=== PATIENT | female | born 1990 | race Caucasian/White ===

== ENCOUNTER → 2017-12-05 | Outpatient (CLI) | payer OTHER ==
[2017-12-05 17:36] LABS: BASO % 0.2 %; BASO ABS # 0.02 K/uL (0-0.2); EOS % 0.7 %; EOS ABS # 0.09 K/uL (0-0.5); HEMATOCRIT 36.5 % (37-47); IG# 0.04 K/uL (0.00-0.02); LYMPH % 27.3 %; LYMPH ABS # 3.37 K/uL (1.2-3.4); MEAN CELL VOLUME 94.6 fL (80-100); MEAN CORPUSCULAR HEMOGLOBIN 33.7 pg (25-34); MEAN CORPUSCULAR HGB CONC 35.6 g/dl (32-36); MEAN PLATELET VOLUME 9.8 fL (7.4-10.4); MONO % 11.2 %; MONO ABS # 1.38 K/uL (0.11-0.59); NEUT % 60.3 %; NEUT ABS # 7.46 K/uL (1.4-6.5); PLATELET COUNT 239 K/uL (130-400); RED CELL DISTRIBUTION WIDTH CV 12.5 % (11.5-14.5); RED CELL DISTRIBUTION WIDTH SD 42.4 fL (36.4-46.3); WHITE BLOOD COUNT 12.36 K/uL (4.8-10.8)
== END | disposition home or self-care (01) ==
LOC: C.LAB1850 16:53
PROVIDERS: ATTEND Obstetrics & Gynecology
DX: Z34.01 Encounter for supervision of normal first pregnancy, first trimester (principal); Z3A.00 Weeks of gestation of pregnancy not specified

== ENCOUNTER → 2017-12-05 | Outpatient (CLI) | payer OTHER | END | disposition home or self-care (01) | LOC: C.LABSPEC 09:23 | PROVIDERS: ATTEND Obstetrics & Gynecology | DX: O02.1 Missed abortion (principal); Z3A.00 Weeks of gestation of pregnancy not specified ==

== ENCOUNTER → 2017-12-22 | Day surgery (SDC) | payer OTHER ==
[2017-12-20 15:19] VITALS: BMI 22.0
[~2017-12-22] VITALS: Ht 154.9 cm; Wt 53.0 kg
[~2017-12-22] MED LIST: ASCA500 PO; ATROPINE SULFATE 0.1 MG/ML 5ML SYR IV PRN; DEXAMETHASONE SOD INJ 4 MG/ML VIAL ONE; DOXYCYCLINE HYCLATE 100 MG CAP PO SCH; EpHEDrine SULFATE INJ 50 MG/ML AMP IV PRN; FENTANYL CITRATE INJ 50 MCG/1 ML 2 ML VIAL IV PRN; FENTANYL CITRATE INJ 50 MCG/1 ML 2 ML VIAL ONE; FERR1TAB13 PO; FLUMAZENIL 0.1 MG/1 ML 10 ML VIAL IV PRN; HYDROmorphone INJ 1 MG/ML SYR ONE; IBUPROFEN 200 MG TAB PO PRN; IBUPROFEN 600 MG TAB PO PRN; KETOROLAC TROMETHAMINE 30 MG/ML VIAL IV. PRN; KETOROLAC TROMETHAMINE 30 MG/ML VIAL ONE; LACTATED RINGER'S 1000ML 1,000 ML IV SCH; LIDOCAINE HCL 2% 2 ML VIAL (20MG/ML) ONE; METHYLERGONOVINE MALEATE 0.2 MG/ML AMP ONE; MIDAZOLAM HCL 1 MG/ML 2ML VIAL ONE; MoRPHine SULFATE 2 MG/ML CARP IV PRN; MoRPHine SULFATE 4 MG/ML 1 ML CARP\\VIAL IV PRN; NALOXONE HCL 0.4 MG/1 ML VIAL/CARP IV PRN; ONDANSETRON INJ 2 MG/ML 2 ML VIAL IV PRN; ONDANSETRON INJ 2 MG/ML 2 ML VIAL ONE; OXYCODONE HCL IR 5 MG TAB (IMMEDIATE RELEASE) ONE; OXYCODONE HCL IR 5 MG TAB (IMMEDIATE RELEASE) PO PRN; PHENYLEPHRINE 100MCG/ML 5ML SYR ONE; PRENTAB26 PO; PROMETHAZINE HCL INJ 12.5 MG in SODIUM CHLORIDE 0.9% 50ML 50 ML IV PRN; PROPOFOL IV EMULSION 10 MG/ML 20 ML VIAL IV ONE
[2017-12-22 07:12] VITALS: BP 111/60; PULSE 60; TEMP 37; O2SAT 99; Ht 154.9 cm; Wt 53.0 kg
[2017-12-22 07:36] LABS: BASO % 0.4 %; BASO ABS # 0.03 K/uL (0-0.2); EOS % 1.5 %; EOS ABS # 0.11 K/uL (0-0.5); HEMATOCRIT 35.4 % (37-47); HEMOGLOBIN 12.8 g/dL (12.0-16.0); IG# 0.02 K/uL (0.00-0.02); LYMPH % 22.8 %; LYMPH ABS # 1.63 K/uL (1.2-3.4); MEAN CELL VOLUME 95.4 fL (80-100); MEAN CORPUSCULAR HEMOGLOBIN 34.5 pg (25-34); MEAN PLATELET VOLUME 9.1 fL (7.4-10.4); MONO % 9.4 %; MONO ABS # 0.67 K/uL (0.11-0.59); NEUT % 65.6 %; PLATELET COUNT 172 K/uL (130-400); RED CELL DISTRIBUTION WIDTH CV 12.8 % (11.5-14.5); RED CELL DISTRIBUTION WIDTH SD 43.6 fL (36.4-46.3); WHITE BLOOD COUNT 7.16 K/uL (4.8-10.8)
[2017-12-22 07:38] LABS: MEAN CORPUSCULAR HGB CONC 36.2 g/dl (32-36)
--- NOTE | 2017-12-22 07:59 | History & Physical Bridge Note ---
H&P Re-Evaluation Bridge Note: I have examined the patient, reviewed the History & Physical and in the interval since the performance of the History & Physical I have noted the following changes of clinical significance: No changes noted
--- NOTE | 2017-12-22 08:38 | [facility] Post Operative Brief Note ---
Immediate Operative Summary Operative Date Dec 22, 2017. Pre-Operative Diagnosis incomplete ab, failed cytotec Post-Operative Diagnosis same Procedure(s) Performed D&E Surgeon Candy Security Officer Surgeon(s) none Estimated Blood Loss 200cc Findings See Below uterus sounded to 8cm, pocs removed Fluids (cc crystalloids) 750cc Specimens pocs Drains None Anesthesia Type General Complication(s) none Disposition Accompanied Pt To Recover: yes Disposition: Recovery Room / PACU
--- NOTE | 2017-12-22 08:59 | Discharge Instructions ---
Discharge Instructions Date of Service Dec 22, 2017. Visit Reason for Visit: Missed /Incomplete Discharge Discharge Diagnosis / Problem: S/P D&E Discharge Goals Goal(s): Specific goals Activity Recommendations Activity Limitations: per Instructions/Follow-up section Anesthesia . Post Anesthesia Instructions: If you have had General Anesthesia or IV Sedation: * Do not drive today. * Resume driving when surgeon permits. * Do not make important decisions or sign legal documents today. * Call surgeon for: 1. Temperature elevations greater than 101 degrees F. 2. Uncontrollable pain. 3. Excessive bleeding. 4. Persistent nausea and vomiting. 5. Medication intolerance (nausea, vomiting or rash). * For nausea and vomiting use only clear liquids such as: tea, soda, bouillon until nausea subsides, then gradually increase diet as tolerated. * If you have any concerns or questions, call your surgeon's office. If physician is unavailable and it is an emergency, call 911 or go to the nearest emergency room. . Instructions / Follow-Up Instructions / Follow-Up ACTIVITY RECOMMENDATIONS: * Avoid tampons, douching, hot tubs, pools, and intercourse until bleeding has stopped. * May shower as usual. * No strenuous activity for 24-48 hours. After 24-48 hours, you may do anything you feel like doing (driving and sports are okay). SPECIAL CARE INSTRUCTIONS: Special Diet: * Mild nausea may occur in the immediate post-operative period. * Take clear liquids such as tea, cola or bouillon until all nausea has subsided; you may then resume your normal diet. Special Care: * Light bleeding and vaginal spotting can last from a few days to 3-4 weeks. Call your doctor if bleeding becomes heavier than the heaviest part of your period. * Check your temperature twice a day for one week. If it goes above 100.4 degrees Fahrenheit (38.0 Celsius), notify your doctor. * Call your doctor's office for an appointment for 2-4 weeks after your surgery. FOLLOW-UP VISIT: Call your doctor's office for an appointment for 2-4 weeks after your surgery. Diet Recommendations Recommended Home Diet: no limitations, resume previous diet Procedures Procedures Performed: D&E Pending Studies Studies pending at discharge: no Medical Emergencies . Who to Call and When: Medical Emergencies: If at any time you feel your situation is an emergency, please call 911 immediately. . Non-Emergent Contact Non-Emergency issues call your: Fine Craft Artist . . "Provider Documentation" section prepared by Carisa Gupta. .
--- NOTE | 2017-12-22 09:16 | OPERATIVE REPORT ---
DATE OF OPERATION: 12/22/2017 PREOPERATIVE DIAGNOSES: 1. Incomplete/missed . 2. Failed Cytotec. POSTOPERATIVE DIAGNOSES: Same. PROCEDURE: D&E. SURGEON: Carisa Gupta MD. ANESTHESIA: General per laryngeal mask. ESTIMATED BLOOD LOSS: 200 Ml. FLUIDS: 750 mL of IV fluid. URINE OUTPUT: 300 mL of clear yellow urine drained from the bladder at the beginning of the procedure. INDICATIONS: Carolina is a 27-year-old 1, para 0 who was found to have a missed AB in the office at her new OB visit, she was 8+ weeks by dates and only 6 weeks by size without a heart rate. She attempted vaginal Cytotec for medical treatment of missed AB and has failed and has now decided to proceed with D&E. FINDINGS: Uterus sounded to 8 cm. It was approximately 8 weeks in size and mobile. Products of conception removed from the uterus. COMPLICATIONS: None. DRAINS: None. DISPOSITION: To recovery room in stable condition. DESCRIPTION OF THE PROCEDURE: The patient was taken to the operating room where she was identified verbally and by bracelet. She was placed in dorsal supine position where general anesthesia was induced without difficulty. She was then placed in dorsal lithotomy position in hospital [facility] stirrups and prepped and draped in normal sterile fashion. Timeout was held identifying correct patient, procedure and positioning. The bladder was drained of urine. The exam under anesthesia revealed an 8 week, mobile, anteverted uterus. A weighted speculum was placed in the posterior vagina. The anterior lip of the cervix was grasped with a single tooth tenaculum. Uterus was sounded to 8 cm, was dilated to a #29 Hegar dilator. The suction curette was placed into the uterus x3 with removal of products of conception. Curettage was then done in 365 degrees until a cat's cry was heard in all quadrants. The suction curette was passed x2 without return of further tissue. The tenaculum was removed. The uterus was massaged and bleeding was minimal. She was given 0.2 mg of IM Hemabate and the procedure was terminated. All sponge, lap and needle counts were correct x2. The patient tolerated the procedure well and was taken to recovery room in stable condition. I attest to the content of the Intraoperative Record and any orders documented therein. Any exception s are noted below.
--- NOTE | 2017-12-22 09:19 | Anesthesiology Progress Note ---
Anesthesia Post Op Note Date & Time Dec 22, 2017 at 09:19 Vital Signs Pain Intensity: 1 Vital Signs Past 12 Hours Date Time Temp Pulse Resp B/P (MAP) Pulse Ox O2 Delivery O2 Flow Rate FiO2 12/22/17 09:15 36.5 103/62 12/22/17 09:13 79 14 12/22/17 09:13 79 14 94 12/22/17 09:11 106/66 12/22/17 09:08 86 18 12/22/17 09:08 87 18 95 12/22/17 09:05 109/69 12/22/17 09:03 66 19 12/22/17 09:03 66 19 98 12/22/17 09:00 106/65 12/22/17 08:58 59 19 12/22/17 08:58 60 19 98 12/22/17 08:55 107/64 12/22/17 08:53 67 17 12/22/17 08:53 68 17 98 12/22/17 08:50 101/60 12/22/17 08:48 58 19 12/22/17 08:48 58 19 97 12/22/17 08:46 108/59 12/22/17 08:38 36.7 68 16 103/60 97 Oxymask 7 12/22/17 07:12 37 60 16 111/60 (77) 99 Room Air Notes Mental Status: alert / awake / arousable, participated in evaluation Pt Amnestic to Procedure: Yes Nausea / Vomiting: adequately controlled Pain: adequately controlled Airway Patency, RR, SpO2: stable & adequate BP & HR: stable & adequate Hydration State: stable & adequate Anesthetic Complications: no major complications apparent
[2017-12-22 09:25] VITALS: BP 107/55; PULSE 63; TEMP 36.6; O2SAT 98
[2017-12-22 09:53] VITALS: BP 104/50; PULSE 67; O2SAT 99
[2017-12-22 10:22] VITALS: BP 100/59; PULSE 65; O2SAT 99
[2017-12-22 10:50] VITALS: BP 113/58; PULSE 61; TEMP 36.7; O2SAT 100
== END | disposition home or self-care (01) ==
LOC: C.ACU 06:50
PROVIDERS: ATTEND Obstetrics & Gynecology
DX: O02.1 Missed abortion (principal); Z80.3 Family history of malignant neoplasm of breast; Z82.0 Family history of epilepsy and other diseases of the nervous system; Z87.891 Personal history of nicotine dependence

== ENCOUNTER → 2018-07-03 | Outpatient (CLI) | payer OTHER ==
[~2018-07-03] MED LIST changes: -ASCA500 PO; -ATROPINE SULFATE 0.1 MG/ML 5ML SYR IV PRN; -DEXAMETHASONE SOD INJ 4 MG/ML VIAL ONE; -DOXYCYCLINE HYCLATE 100 MG CAP PO SCH; -EpHEDrine SULFATE INJ 50 MG/ML AMP IV PRN; -FENTANYL CITRATE INJ 50 MCG/1 ML 2 ML VIAL IV PRN; -FENTANYL CITRATE INJ 50 MCG/1 ML 2 ML VIAL ONE; -FERR1TAB13 PO; -FLUMAZENIL 0.1 MG/1 ML 10 ML VIAL IV PRN; -HYDROmorphone INJ 1 MG/ML SYR ONE; -IBUPROFEN 200 MG TAB PO PRN; -IBUPROFEN 600 MG TAB PO PRN; -KETOROLAC TROMETHAMINE 30 MG/ML VIAL IV. PRN; -KETOROLAC TROMETHAMINE 30 MG/ML VIAL ONE; -LACTATED RINGER'S 1000ML 1,000 ML IV SCH; -LIDOCAINE HCL 2% 2 ML VIAL (20MG/ML) ONE; -METHYLERGONOVINE MALEATE 0.2 MG/ML AMP ONE; -MIDAZOLAM HCL 1 MG/ML 2ML VIAL ONE; -MoRPHine SULFATE 2 MG/ML CARP IV PRN; -MoRPHine SULFATE 4 MG/ML 1 ML CARP\\VIAL IV PRN; -NALOXONE HCL 0.4 MG/1 ML VIAL/CARP IV PRN; -ONDANSETRON INJ 2 MG/ML 2 ML VIAL IV PRN; -ONDANSETRON INJ 2 MG/ML 2 ML VIAL ONE; -OXYCODONE HCL IR 5 MG TAB (IMMEDIATE RELEASE) ONE; -OXYCODONE HCL IR 5 MG TAB (IMMEDIATE RELEASE) PO PRN; -PHENYLEPHRINE 100MCG/ML 5ML SYR ONE; -PROMETHAZINE HCL INJ 12.5 MG in SODIUM CHLORIDE 0.9% 50ML 50 ML IV PRN; -PROPOFOL IV EMULSION 10 MG/ML 20 ML VIAL IV ONE
== END | disposition home or self-care (01) ==
LOC: C.LAB1850 06-29 17:16
PROVIDERS: ATTEND Obstetrics & Gynecology
DX: N96 Recurrent pregnancy loss (principal)

== ENCOUNTER 2019-04-27 18:40 | Inpatient (IN) ==
[2019-04-27] MEDS: LACTATED RINGER'S 1,000 ML IV PRN ×2 (19:47→21:10)
[2019-04-27] MEDS ORDERED: OXYTOCIN 30 UNITS/500 ML BAG IV PRN (20:04)
--- NOTE | 2019-04-27 20:42 | Anesthesiology Consultation ---
Date of Service April 27, 2019 Assessment & Plan (1) Encounter for pre-operative examination: Chart Review Chart Review: Patient NOT seen in Pre Admission Testing and Acceptable Risk for Labor Epidural Consults Requested none ASA ASA2 Proposed Anesthesia Anesthesia Type: Labor Epidural Risk / Benefits Reviewed With: PT / POA / Parent / Guardian, Accepts Plan and Informed Consent Obtained Additional Notes Platelets low. Labs drawn immediately prior to epidural placement. No signs of symptoms concerning for pre-e or HELP. History Height/Weight Height: 5 ft 1 in Weight: 77.111 kg Allergies Allergy/AdvReac Type Severity Reaction Status Date / Time acetaminophen Allergy Mild RASH Verified 05/12/18 12:02 Medications Home Medications Medication Instructions Recorded Confirmed Last Taken PNV cmb#95-ferrous fumarate-FA 1 tab PO DAILY 04/27/19 04/27/19 1 Day Ago [] ~04/26/19 calcium carbonate [Tums] 200 mg PO BID 04/27/19 04/27/19 04/27/19 NPO Date Last Intake of Fluids: 04/27/19 Time Last Intake of Fluids: 20:59 Date Last Intake of Solids: 04/27/19 Time Last Intake of Solids: 17:30 Exercise / Class Metabolic Activity II 4-5 Yardwork/Stairs/Walk up hill Negative for chest pain or shortness of breath. Patient denies active symptoms of GERD. Past Surgical History Surgical History History of D&C History of surgery on wrist Hx of appendectomy Past Anesthesia History No Hx of Anesthesia Complications History of PONV No Hx of PONV and No Hx of Motion Sickness Social History Smoking Status: Never smoker Do You Dip or Chew Tobacco: No Hx Alcohol Use: No Hx Substance Use: No Review of Systems Patient denies history of abnormal bleeding or bleeding disorder. Patient denies active use of anticoagulants other than low dose aspirin. Patient denies numbness, tingling or weakness in lower extremities. Physical Exam Vital Signs Last Vital Signs Pulse 80 04/27/19 21:07 Resp 20 04/27/19 20:30 BP 144/81 H 04/27/19 18:56 Pulse Ox 98 04/27/19 21:07 Constitutional not obese (Gravid uterus) ENMT Mouth: no TMJ abnormality and oral opening not small Thyromental Distance: > or= 3.5 Finger Breadths Mallampati Class: II Neck normal visual inspection; neck extension not limited Respiratory normal respiratory effort Auscultation: lungs clear to auscultation bilaterally Cardiovascular Rate/Rhythm: regular rate and regular rhythm Heart Sounds: no murmur Neurologic moves all extremities Motor/Sensory: no sensory deficit Psychiatric Orientation: alert and oriented x 3 Testing Laboratory Results 04/27/19 20:19
[2019-04-27 20:44] LABS: Hematocrit (blood only) 34.5 % (37-47); Hemoglobin 12.6 g/dL (12.0-16.0); Mean Corpuscular Hgb Conc 36.5 g/dL (32-36); Mean Corpuscular Volume 99.1 fL (80-100); RDW Coefficient of Variation 12.1 % (11.5-14.5); RDW Standard Deviation 43.8 fL (36.4-46.3); Red Blood Count 3.48 M/uL (4.2-5.4); White Blood Count 13.41 K/uL (4.8-10.8)
[2019-04-27] MEDS ORDERED: BUPIVACAINE 0.25% 30 ML VIAL ONE (20:51)
[2019-04-27] MEDS ORDERED: ePHEDrine sulfate 50 MG/ML AMP ONE (20:51)
[2019-04-27] MEDS ORDERED: fentaNYL 2MCG/ML ROPIV 1.25MG/ML 100 ML BAG EPI ONE (20:52)
[2019-04-27] MEDS ORDERED: fentaNYL citrate 100 MCG/2 ML VIAL ONE (20:52)
[2019-04-27 21:05] LABS: Mean Platelet Volume 11.4 fL (7.4-10.4); Platelet Count 94 K/uL (130-400); Platelet Estimate Decreased (Normal)
[2019-04-27] MEDS ORDERED: ONDANSETRON INJ 2 MG/ML 2 ML VIAL IV PRN (21:43)
[2019-04-27] MEDS ORDERED: NALOXONE HCL 1 MG in SODIUM CHLORIDE 0.9% 1000ML 1,000 ML IV PRN (21:43)
[2019-04-27] MEDS ORDERED: NALBUPHINE HCL INJ 10 MG/ML AMP IV PRN (21:43)
[2019-04-27] MEDS ORDERED: fentaNYL 2MCG/ML ROPIV 1.25MG/ML 100 ML BAG EPI PRN (21:43)
[2019-04-27] MEDS ORDERED: DiphenhydrAMINE HCL 50 MG/ML VIAL IV PRN (21:43)
[2019-04-27] MEDS ORDERED: NALOXONE HCL 0.4 MG/1 ML VIAL/CARP IV PRN (21:43)
[2019-04-27] MEDS ORDERED: ePHEDrine sulfate 50 MG/ML AMP IV PRN (21:43)
--- NOTE | 2019-04-28 03:08 | Labor Progress Brief Note ---
Date of Service April 28, 2019 Subjective comfortable Assessment & Plan (1) Encounter for pre-operative examination: Continue current management. fetus category one. Physical Exam Constitutional: WD/WN, vitals as above Genitourinary: cx--/-2 toco--q5min efm--120s with mod variability, accels present, no decels Results & Data Vital Signs (Past 12 Hours) Vital Signs Temp Pulse Resp BP Pulse Ox 04/28/19 03:02 96 H 96 04/28/19 03:00 80 111/56 L 04/28/19 02:57 83 92 04/28/19 02:52 84 95 04/28/19 02:47 78 95 04/28/19 02:46 73 117/59 L 04/28/19 02:42 74 96 04/28/19 02:37 69 96 04/28/19 02:32 80 95 04/28/19 02:30 37.0 C 73 16 123/58 L 04/28/19 02:27 88 95 04/28/19 02:22 80 97 04/28/19 02:17 86 96 04/28/19 02:15 87 134/81 04/28/19 02:12 85 97 04/28/19 02:07 78 94 04/28/19 02:02 90 96 04/28/19 02:01 83 122/77 04/28/19 02:00 16 04/28/19 01:57 83 95 04/28/19 01:52 93 H 96 04/28/19 01:47 84 95 04/28/19 01:45 91 H 118/72 04/28/19 01:42 85 94 04/28/19 01:37 83 94 04/28/19 01:32 99 H 116/69 95 04/28/19 01:30 16 04/28/19 01:27 86 94 04/28/19 01:22 89 96 04/28/19 01:17 81 120/59 L 96 04/28/19 01:12 80 95 04/28/19 01:07 89 95 04/28/19 01:02 85 95 04/28/19 01:01 93 H 114/56 L 04/28/19 01:00 20 04/28/19 00:57 83 95 04/28/19 00:52 85 95 04/28/19 00:47 84 95 04/28/19 00:46 82 118/66 04/28/19 00:42 87 96 04/28/19 00:37 82 96 04/28/19 00:32 81 95 04/28/19 00:31 87 113/57 L 04/28/19 00:30 36.8 C 20 04/28/19 00:27 87 96 04/28/19 00:22 83 96 04/28/19 00:17 89 96 04/28/19 00:15 86 132/72 04/28/19 00:12 85 95 04/28/19 00:07 94 H 97 04/28/19 00:02 99 H 96 04/28/19 00:01 86 130/75 04/27/19 23:57 76 96 04/27/19 23:52 92 H 96 04/27/19 23:47 90 95 04/27/19 23:45 88 124/58 L 04/27/19 23:42 80 93 04/27/19 23:37 93 H 95 04/27/19 23:32 79 95 04/27/19 23:30 86 124/60 04/27/19 23:27 85 94 04/27/19 23:22 91 H 95 04/27/19 23:17 87 129/61 95 04/27/19 23:12 101 H 94 04/27/19 23:07 83 93 04/27/19 23:03 101 H 121/60 04/27/19 23:02 89 94 04/27/19 23:00 37.0 C 20 04/27/19 22:57 95 H 96 04/27/19 22:52 102 H 92 04/27/19 22:47 95 H 93 04/27/19 22:46 93 H 114/61 04/27/19 22:42 95 H 93 04/27/19 22:37 86 94 04/27/19 22:32 91 H 93 04/27/19 22:31 104 H 113/71 04/27/19 22:30 18 04/27/19 22:27 94 H 92 04/27/19 22:22 106 H 93 04/27/19 22:17 109 H 94 04/27/19 22:16 100 H 108/69 04/27/19 22:12 97 H 94 04/27/19 22:07 98 H 92 04/27/19 22:02 92 H 93 04/27/19 22:01 88 120/73 04/27/19 22:00 20 04/27/19 21:57 93 H 94 04/27/19 21:52 96 H 93 04/27/19 21:47 89 94 04/27/19 21:45 97 H 131/78 04/27/19 21:43 90 129/66 04/27/19 21:42 94 H 94 04/27/19 21:41 92 H 126/69 04/27/19 21:39 87 127/77 04/27/19 21:37 87 132/79 95 04/27/19 21:35 82 133/91 04/27/19 21:33 81 129/82 04/27/19 21:32 86 98 04/27/19 21:31 75 128/83 04/27/19 21:27 81 97 04/27/19 21:22 85 100 04/27/19 21:20 76 129/76 04/27/19 21:17 100 H 98 04/27/19 21:12 82 97 04/27/19 21:07 80 98 04/27/19 21:02 79 97 04/27/19 21:00 20 04/27/19 20:57 83 98 04/27/19 20:52 87 98 04/27/19 20:47 74 98 04/27/19 20:42 79 98 04/27/19 20:37 76 97 04/27/19 20:32 87 98 04/27/19 20:30 20 04/27/19 20:00 20 04/27/19 19:45 37.0 C 20 04/27/19 19:15 22 04/27/19 18:56 72 144/81 H
--- NOTE | 2019-04-28 03:12 | Communication Note ---
Date of Service: April 28, 2019 although making slow change, ctx still fairly spaced. Discussed and will add pit to get better contraction pattern.
[2019-04-28] MEDS ORDERED: OXYTOCIN 30 UNITS/500 ML BAG IV PRN ×2 (03:13→11:05)
[2019-04-28] MEDS: LACTATED RINGER'S 1,000 ML IV PRN (04:43)
--- NOTE | 2019-04-28 09:23 | Obstetrical Progress Note ---
Date of Service April 28, 2019 Assessment & Plan (1) Post term over 40 weeks: good cx change. anticip 2nd stage soon. fhts categ 1 Subjective pt doing well. comfortable Physical Exam Constitutional: WD/WN, vitals as above Genitourinary: OB Exam Monitor Tracing: + external FHT monitor used (150 moderate variability, +scalp stim response), + external uterine monitor used (q2 pit at 8) and + category I Results & Data Vital Signs (Past 12 Hours) Vital Signs Temp Pulse Resp BP Pulse Ox 04/28/19 09:17 94 H 97 04/28/19 09:16 92 H 129/75 04/28/19 09:12 90 96 04/28/19 09:07 95 H 96 04/28/19 09:02 83 94 04/28/19 09:01 85 134/64 04/28/19 09:00 20 04/28/19 08:57 85 94 04/28/19 08:52 83 94 04/28/19 08:47 84 125/60 94 04/28/19 08:42 85 94 04/28/19 08:37 85 94 04/28/19 08:32 81 95 04/28/19 08:30 89 18 133/64 04/28/19 08:27 87 97 04/28/19 08:22 92 H 96 04/28/19 08:17 84 95 04/28/19 08:16 37.7 C H 18 04/28/19 08:15 88 131/68 04/28/19 08:12 80 95 04/28/19 08:07 86 95 04/28/19 08:02 87 96 04/28/19 08:01 92 H 127/70 04/28/19 08:00 18 04/28/19 07:57 84 94 04/28/19 07:52 81 95 04/28/19 07:47 83 97 04/28/19 07:46 85 128/72 04/28/19 07:42 89 97 04/28/19 07:37 95 H 96 04/28/19 07:32 88 97 04/28/19 07:30 89 20 131/76 04/28/19 07:27 93 H 98 04/28/19 07:22 89 97 04/28/19 07:17 86 96 04/28/19 07:16 37.9 C H 84 20 133/73 06/08/19 07:15 37.9 C H 20 04/28/19 07:12 94 H 98 04/28/19 07:07 88 98 04/28/19 07:02 92 H 124/58 L 97 04/28/19 06:57 100 H 97 04/28/19 06:52 94 H 97 04/28/19 06:47 86 125/74 96 04/28/19 06:42 100 H 98 04/28/19 06:37 87 96 04/28/19 06:32 89 97 04/28/19 06:30 88 130/74 04/28/19 06:27 92 H 98 04/28/19 06:22 95 H 96 04/28/19 06:17 85 96 04/28/19 06:15 90 126/69 04/28/19 06:12 85 97 04/28/19 06:07 83 97 04/28/19 06:02 92 H 96 04/28/19 06:00 84 20 120/77 04/28/19 05:57 87 97 04/28/19 05:52 93 H 97 04/28/19 05:47 91 H 96 04/28/19 05:46 92 H 123/79 04/28/19 05:42 84 96 04/28/19 05:37 87 97 04/28/19 05:32 95 H 123/68 96 04/28/19 05:27 90 96 04/28/19 05:22 77 93 04/28/19 05:17 77 95 04/28/19 05:16 83 106/58 L 04/28/19 05:12 80 93 04/28/19 05:07 80 93 04/28/19 05:02 78 95 04/28/19 05:01 74 112/64 04/28/19 05:00 37.3 C 18 04/28/19 04:57 87 96 04/28/19 04:52 82 95 04/28/19 04:47 73 96 04/28/19 04:46 75 112/58 L 04/28/19 04:42 80 97 04/28/19 04:37 75 95 04/28/19 04:32 77 96 04/28/19 04:31 75 121/69 04/28/19 04:27 85 96 04/28/19 04:22 86 95 04/28/19 04:17 97 H 96 04/28/19 04:16 82 129/67 04/28/19 04:12 87 94 04/28/19 04:07 85 92 04/28/19 04:02 83 93 04/28/19 04:01 82 120/63 04/28/19 03:57 82 94 04/28/19 03:52 85 96 04/28/19 03:47 81 95 04/28/19 03:46 76 116/60 04/28/19 03:42 85 95 04/28/19 03:37 81 95 04/28/19 03:32 81 95 04/28/19 03:30 78 20 119/56 L 04/28/19 03:27 83 95 04/28/19 03:22 79 94 04/28/19 03:17 80 96 04/28/19 03:16 85 114/58 L 04/28/19 03:12 86 96 04/28/19 03:07 91 H 95 04/28/19 03:02 96 H 96 04/28/19 03:00 36.7 C 80 18 111/56 L 04/28/19 02:57 83 92 04/28/19 02:52 84 95 04/28/19 02:47 78 95 04/28/19 02:46 73 117/59 L 04/28/19 02:42 74 96 04/28/19 02:37 69 96 04/28/19 02:32 80 95 04/28/19 02:30 37.0 C 73 16 123/58 L 04/28/19 02:27 88 95 04/28/19 02:22 80 97 04/28/19 02:17 86 96 04/28/19 02:15 87 134/81 04/28/19 02:12 85 97 04/28/19 02:07 78 94 04/28/19 02:02 90 96 04/28/19 02:01 83 122/77 04/28/19 02:00 16 04/28/19 01:57 83 95 04/28/19 01:52 93 H 96 04/28/19 01:47 84 95 04/28/19 01:45 91 H 118/72 04/28/19 01:42 85 94 04/28/19 01:37 83 94 04/28/19 01:32 99 H 116/69 95 04/28/19 01:30 16 04/28/19 01:27 86 94 04/28/19 01:22 89 96 04/28/19 01:17 81 120/59 L 96 04/28/19 01:12 80 95 04/28/19 01:07 89 95 04/28/19 01:02 85 95 04/28/19 01:01 93 H 114/56 L 04/28/19 01:00 20 04/28/19 00:57 83 95 04/28/19 00:52 85 95 04/28/19 00:47 84 95 04/28/19 00:46 82 118/66 04/28/19 00:42 87 96 04/28/19 00:37 82 96 04/28/19 00:32 81 95 04/28/19 00:31 87 113/57 L 04/28/19 00:30 36.8 C 20 04/28/19 00:27 87 96 04/28/19 00:22 83 96 04/28/19 00:17 89 96 04/28/19 00:15 86 132/72 04/28/19 00:12 85 95 04/28/19 00:07 94 H 97 04/28/19 00:02 99 H 96 04/28/19 00:01 86 130/75 04/27/19 23:57 76 96 04/27/19 23:52 92 H 96 04/27/19 23:47 90 95 04/27/19 23:45 88 124/58 L 04/27/19 23:42 80 93 04/27/19 23:37 93 H 95 04/27/19 23:32 79 95 04/27/19 23:30 86 124/60 04/27/19 23:27 85 94 04/27/19 23:22 91 H 95 04/27/19 23:17 87 129/61 95 04/27/19 23:12 101 H 94 04/27/19 23:07 83 93 04/27/19 23:03 101 H 121/60 04/27/19 23:02 89 94 04/27/19 23:00 37.0 C 20 04/27/19 22:57 95 H 96 04/27/19 22:52 102 H 92 04/27/19 22:47 95 H 93 04/27/19 22:46 93 H 114/61 04/27/19 22:42 95 H 93 04/27/19 22:37 86 94 04/27/19 22:32 91 H 93 04/27/19 22:31 104 H 113/71 04/27/19 22:30 18 04/27/19 22:27 94 H 92 04/27/19 22:22 106 H 93 04/27/19 22:17 109 H 94 04/27/19 22:16 100 H 108/69 04/27/19 22:12 97 H 94 04/27/19 22:07 98 H 92 04/27/19 22:02 92 H 93 04/27/19 22:01 88 120/73 04/27/19 22:00 20 04/27/19 21:57 93 H 94 04/27/19 21:52 96 H 93 04/27/19 21:47 89 94 04/27/19 21:45 97 H 131/78 04/27/19 21:43 90 129/66 04/27/19 21:42 94 H 94 04/27/19 21:41 92 H 126/69 04/27/19 21:39 87 127/77 04/27/19 21:37 87 132/79 95 04/27/19 21:35 82 133/91 04/27/19 21:33 81 129/82 04/27/19 21:32 86 98 04/27/19 21:31 75 128/83 04/27/19 21:27 81 97 04/27/19 21:22 85 100
[2019-04-28] MEDS ORDERED: BENZOCAINE 20% AER SPR 82.5 GM CAN EXT PRN (11:05)
[2019-04-28] MEDS ORDERED: HYDROCORTISONE ACETATE 25 MG SUPP PR PRN (11:05)
[2019-04-28] MEDS ORDERED: DIPHTHERIA/TETANUS/PERTUSSIS 0.5 ML SYR/VIAL IM ONE (11:05)
[2019-04-28] MEDS ORDERED: SUPERCREAM 0.870% 15 GM JAR EXT PRN (11:05)
[2019-04-28] MEDS ORDERED: OXYTOCIN 20 UNITS in LACTATED RINGER'S 1,000 ML IV SCH (11:30)
--- NOTE | 2019-04-28 11:56 | Delivery Summary ---
DATE OF OPERATION: 04/28/2019 The patient dilated to complete and pushed to deliver a viable male , Apgars 8 and 9 via over intact perineum. Mouth and nose bulb suctioned at the perineum. The shoulders and body delivered with ease. Meconium-stained fluid had previously been noted and terminal meconium noted. The infant was vigorous and crying at . Cord clamped at 30 seconds of life and infant to maternal abdomen where the cord was then doubly clamped and cut. Cord blood was obtained. Placenta delivered spontaneously and intact, 3-vessel cord. Hemostasis achieved with dilute Pitocin and uterine massage. Lacerations vaginally towards the sulci x2 were stitched with 3-0 Vicryl to the level of the hymenal ring. The labial lacerations on the left and right were stitched with 4-0 Vicryl in interrupted sutures for excellent hemostasis. EBL 500 mL. Mother and baby stable in recovery. I attest to the content of the Intraoperative Record and any orders documented therein. Any exception s are noted below.
[2019-04-28] MEDS: IBUPROFEN 600 MG TAB PO PRN ×2 (12:28→20:05)
--- NOTE | 2019-04-28 13:15 | Anesthesia Procedure Note ---
Date of Service April 28, 2019 Anesthesia Post Epidural Note Vital Signs Vital Signs: Temp Pulse Resp BP Pulse Ox 37.7 C H 111 H 20 120/61 95 04/28/19 08:16 04/28/19 13:03 04/28/19 09:00 04/28/19 13:03 04/28/19 10:37 Notes Mental Status: alert / awake / arousable and participated in evaluation Nausea / Vomiting: adequately controlled Pain: adequately controlled Airway Patency, RR, SpO2: stable & adequate BP & HR: stable & adequate Hydration State: stable & adequate Neuraxial Anesthesia: was administered and sensory block is resolving Anesthetic Complications: no major complications apparent and Pt Satisfied with anesthetic care Epidural: Removed without complications and With tip intact
[2019-04-28] MEDS: DOCUSATE SODIUM 100 MG CAP PO SCH (21:02)
[2019-04-29] MEDS: IBUPROFEN 600 MG TAB PO PRN ×4 (02:51→21:34)
--- NOTE | 2019-04-29 07:09 | Obstetrical Progress Note ---
Date of Service April 29, 2019 Assessment & Plan (1) Post term over 40 weeks: (2) Normal delivery at term: routine pp care, stable. Subjective Ambulation: ambulating normally Voiding: no voiding problems Diet Tolerance:: regular diet Lochia:: Small Feeding Type:: breast feeding denies pain issues Physical Exam Constitutional WD/WN, vitals as above Respiratory normal respiratory effort, lungs clear to auscultation Cardiovascular Rate/Rhythm: regular rate and regular rhythm Gastrointestinal (Abdomen) ff 1 down nt Musculoskeletal nt calves. Results & Data Vital Signs (Past 12 Hours) Vital Signs Temp Pulse Resp BP 04/29/19 04:00 36.5 C 81 18 94/59 L 04/28/19 23:30 36.7 C 92 H 20 109/67 04/28/19 19:45 36.6 C 75 18 120/72
[2019-04-29 07:44] LABS: Hematocrit (blood only) 28.8 % (37-47); Hemoglobin 10.3 g/dL (12.0-16.0)
[2019-04-29] MEDS: DOCUSATE SODIUM 100 MG CAP PO SCH ×2 (09:17→20:07)
[2019-04-30] MEDS: IBUPROFEN 600 MG TAB PO PRN ×4 (04:25→17:10)
--- NOTE | 2019-04-30 05:52 | Obstetrical Progress Note ---
Date of Service <Paulo Crockett MD - Last Filed: 04/30/19 06:28> April 30, 2019 Assessment & Plan <Paulo Crockett MD - Last Filed: 04/30/19 06:28> (1) Normal delivery at term: Carolina Chew is a 28yo who presented at 40+ weeks now s/p PPD#2 - GBS negative, O+, RI - Feels well today. Eating well, voiding well, ambulating well. - well - Pain well controlled with ibuprofen 600mg Q4H PRN. - Routine care - After discharge will have [address] Sharma. Subjective <Paulo Crockett MD - Last Filed: 04/30/19 06:28> Ambulation: ambulating normally Voiding: no voiding problems Passing Gas:: Yes Diet Tolerance:: regular diet Lochia:: Small Feeding Type:: breast feeding Current Pain Level(1-10): 0 Review of Systems Denies fever, chills, sweats Denies shortness of breath, difficulty breathing, chest pain, palpitations, chest pressure. Denies breast pain. Denies dysuria. Denies headache. Physical Exam <Paulo Crockett MD - Last Filed: 04/30/19 06:28> General: Alert, oriented. No acute distress. Cardiac: Regular rate and rhythm, no murmurs/rubs/gallops. Respiratory: Clear to auscultation anterior and posteriorly, no wheezes/rales/rhonchi. No increased work of breathing. Symmetrical chest rise. No respiratory distress. Abdomen: Soft, nontender, nondistended. Bowel sounds present. Uterus: Uterine fundus firm, palpable 2cm below umbilicus. Lower Extremities: Trace pedal edema bilaterally, no new/increased lower extremity edema or swelling. No deep calf pain. Syd's negative bilaterally. Results & Data <Paulo Crockett MD - Last Filed: 04/30/19 06:28> Vital Signs (Past 12 Hours) Vital Signs Temp Pulse Resp BP 04/30/19 00:30 36.7 C 83 18 109/58 L <Celena Sharma MD, FACOG - Last Filed: 04/30/19 06:59> Co-Signing Physician Notes Resident Physician Supervision Note: I was present with Dr. Jacobs during the history and exam. I discussed the case with the resident and agree with the findings and plan as documented in the note. Any exceptions or clarifications are listed here: Doing well, ready for discharge. ok, but wants to see if can speak with medical cost consultant prior to discharge. Instructions reviewed. Plan 6wk pp check. Documented By: Celena Sharma MD, FACOG Resident Activity Tracking <Paulo Crockett MD - Last Filed: 04/30/19 06:28> Resident Involvement: Resident Care Provided Care Provided: Adult Hospital Medicine
[2019-04-30] MEDS: DOCUSATE SODIUM 100 MG CAP PO SCH (08:07)
[2019-04-30] MEDS ORDERED: SENNA 8.6 MG TAB PO SCH (15:45)
== END 2019-04-30 18:55 | disposition home or self-care (01) | DRG 806 ==
LOC: OPB 18:40 → 4S1 18:41 → 4S2 04-28 14:03

== ENCOUNTER 2021-02-28 06:51 | Inpatient (IN) ==
[2021-02-28] MEDS ORDERED: LACTATED RINGER'S 1,000 ML IV PRN (07:13)
[2021-02-28] MEDS ORDERED: OXYTOCIN 30 UNITS/500 ML BAG IV PRN ×3 (07:13→12:36)
[2021-02-28 07:51] LABS: Hematocrit (blood only) 36.3 % (37-47); Hemoglobin 13.2 g/dL (12.0-16.0); Mean Corpuscular Hemoglobin 36.2 pg (25-34); Mean Corpuscular Hgb Conc 36.4 g/dL (32-36); Mean Corpuscular Volume 99.5 fL (80-100); Mean Platelet Volume 12.1 fL (7.4-10.4); Platelet Count 131 K/uL (130-400); RDW Coefficient of Variation 12.4 % (11.5-14.5); RDW Standard Deviation 44.9 fL (36.4-46.3); Red Blood Count 3.65 M/uL (4.2-5.4)
[2021-02-28] MEDS ORDERED: ePHEDrine sulfate 50 MG/ML AMP ONE (08:25)
[2021-02-28] MEDS ORDERED: SODIUM CHLORIDE 0.9% INJ 10 ML VIAL ONE (08:25)
[2021-02-28] MEDS ORDERED: BUPIVACAINE 0.25% 30 ML VIAL ONE (08:26)
[2021-02-28] MEDS ORDERED: fentaNYL citrate 100 MCG/2 ML VIAL ONE (08:26)
[2021-02-28] MEDS ORDERED: fentaNYL 2MCG/ML ROPIVACAINE 1.25MG/ML 100 ML BAG EPI ONE (08:26)
--- NOTE | 2021-02-28 08:42 | Anesthesiology Consultation ---
Date of Service February 28, 2021 Assessment & Plan (1) Encounter for pre-operative examination: History Height/Weight Height: 5 ft 1 in Weight: 78.471 kg Allergies Allergy/AdvReac Type Severity Reaction Status Date / Time acetaminophen Allergy Mild RASH Verified 02/27/21 16:10 Medications Home Medications Medication Instructions Recorded Confirmed Last Taken prenat.vits,poli,[id number] 1 tab PO DAILY 07/09/20 02/27/21 Unknown Active Medications Generic Name Dose Route Start Last Admin Trade Name Freq PRN Reason Stop Dose Admin Lactated Ringer's 1,000 mls @ 125 mls/hr 02/28/21 07:13 02/28/21 08:19 Lr IV 03/02/21 07:12 999 mls/hr .Q8H PRN Administration L&D Protocol Protocol Past Medical History Medical History Acute appendicitis with peritonitis (11/20/13) Drinking problem Sober since 2012 History of chlamydia History of ileus History of irritable bowel syndrome History of varicella Hx of Clostridium difficile infection Past Family History Family History Father Alcoholism Aunt Breast cancer paternal aunt Mother Heart murmur Family/Other Galileo-Sachs disease Cousins Brother No problems noted. Son No problems noted. Denies family history of Pancreatic cancer Ovarian cancer Prostate cancer Crohn's disease Myocardial infarction Colorectal cancer Ulcerative colitis Uterus cancer Past Surgical History Surgical History History of D&C History of surgery on wrist after scaphoid fx Hx of appendectomy S/P laparoscopy Social History Smoking Status: Former smoker tobacco type: cigarettes Smoking End Date: 06/2013 Hx Alcohol Use: No Hx Substance Use: No substance use type: does not use Last Used Substance Other:: 2013, cocaine and marijuana Physical Exam Vital Signs Last Vital Signs Temp 37.0 C 02/28/21 07:38 Pulse 77 02/28/21 07:05 Resp 20 02/28/21 07:38 BP 130/81 02/28/21 07:05 Testing Laboratory Results 02/28/21 07:27
--- NOTE | 2021-02-28 08:51 | History & Physical Report ---
Date of Service February 28, 2021 Assessment & Plan (1) Active labor at term: admit, iv, labs. getting epidural, then will consider arom. fhts categ 1. Admission and Anticipated Discharge Date Admission Date: February 28, 2021 History of Present Illness Chief Complaint: labor Primary Care Provider: Alie Vaz MD 30yo at 40+wks ashtyn presents to L&D with cc as noted. No rom, vb. +FM. Ready for her epidural. Cx per md going off call 4cm. PNC c/b 1. 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 PNL rh pos, ri, gbs neg OBH: x 1, sab x 2 GYNH: nl paps, no stds Allergies Allergy/AdvReac Type Severity Reaction Status Date / Time acetaminophen Allergy Mild RASH Verified 02/27/21 16:10 Home Medications Medication Instructions Recorded Confirmed Type prenat.vits,poli,rlo-[id number]-fwmfy 1 tab PO DAILY 07/09/20 02/27/21 History Patient History Medical History Acute appendicitis with peritonitis (11/20/13) Drinking problem Sober since 2012 History of chlamydia History of ileus History of irritable bowel syndrome History of varicella Hx of Clostridium difficile infection Surgical History History of D&C History of surgery on wrist after scaphoid fx Hx of appendectomy S/P laparoscopy Family History Father Alcoholism Aunt Breast cancer paternal aunt Mother Heart murmur Family/Other Galileo-Sachs disease Cousins Brother No problems noted. Son No problems noted. Denies family history of Pancreatic cancer Ovarian cancer Prostate cancer Crohn's disease Myocardial infarction Colorectal cancer Ulcerative colitis Uterus cancer Social History (Updated 07/09/20 @ 13:20 by Leigh Ann Logan) Smoking Status: Former smoker Smoking End Date: 06/2013; Second Hand Exposure: No; Tobacco Cessation Education Requested by Patient: No Hx Alcohol Use: No Hx Substance Use: No Preferred Language: Norwegian Communication Ability: Effective Visual Impairment: No Limitations Hearing Ability: Normal Labor Relations Officer Required: No Beliefs That Will Affect Care: None marital status: marital status details: Howard (30) [phone] Current Living Situation: Spouse Current Living Situation Comment: lives with spouse, son, 2 cats, spouse to change litter. 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[employer] Other Information That Helps Us Care for You: No Feels Safe at Home: Yes Safety Concerns: Feels Safe At This Time Childhood Exposure to Second-Hand Smoke: No Dental Care, Regularly: Yes Physical Activity Frequency: 5-6 Times per Week Seatbelt Use: always Sunscreen Use: Yes Assistive Devices: None Physical Exam Constitutional: WD/WN, vitals as above Respiratory: normal respiratory effort, lungs clear to auscultation Cardiovascular: Rate/Rhythm: regular rate and regular rhythm Gastrointestinal (Abdomen): soft gravid nt Musculoskeletal: no edema nontender calves Neurologic: grossly normal Psychiatric: A+Ox3, euthymic affect Genitourinary: Manual OB Exam: + cervical dilation 4 cm OB Exam Monitor Tracing: + external FHT monitor used (130 mod variability), + external uterine monitor used (q3), + category I and + normal FHT variability Results & Data ([facility]) Vital Signs (Past 12 Hours) Vital Signs Temp Pulse Resp BP Pulse Ox 02/28/21 08:43 74 97 02/28/21 07:38 98.6 F 20 02/28/21 07:05 77 130/81 Coding Level of Care Code None Diagnoses Active labor at term
--- NOTE | 2021-02-28 09:47 | Labor Progress Brief Note ---
Date of Service February 28, 2021 Subjective Reason For Note: Routine Evaluation now comfortable with epidural Assessment & Plan (1) Active labor at term: will see how arom helps her labor pattern. fhts categ 1. if needed will add pitocin. Admission and Anticipated Discharge Date Admission Date: February 28, 2021 Physical Exam Constitutional: WD/WN, vitals as above Psychiatric: A+Ox3, euthymic affect Genitourinary: Manual OB Exam: + cervical dilation 4 cm, + cervical effacement 90%, + station -1 and + amniotic fluid (arom) clear OB Exam Monitor Tracing: + external FHT monitor used (130 mod variability), + external uterine monitor used (q2-4), + category I and + normal FHT variability Results & Data ([facility]) Vital Signs (Past 12 Hours) Vital Signs Temp Pulse Resp BP Pulse Ox 02/28/21 09:38 92 H 97 02/28/21 09:37 102 H 94 02/28/21 09:36 78 104/59 L 02/28/21 09:33 92 H 96 02/28/21 09:31 82 94 02/28/21 09:28 77 96 02/28/21 09:23 76 97 02/28/21 09:20 75 113/62 02/28/21 09:18 77 96 02/28/21 09:13 78 108/57 L 96 02/28/21 09:11 82 108/55 L 02/28/21 09:09 83 113/59 L 02/28/21 09:08 83 97 02/28/21 09:07 76 119/59 L 02/28/21 09:05 75 128/57 L 02/28/21 09:03 75 97 02/28/21 08:58 72 98 02/28/21 08:53 82 99 02/28/21 08:48 75 98 02/28/21 08:43 74 97 02/28/21 07:38 98.6 F 20 02/28/21 07:05 77 130/81 Coding Level of Care Code None Diagnoses Active labor at term
[2021-02-28] MEDS ORDERED: NALOXONE HCL 1 MG in SODIUM CHLORIDE 0.9% 1000ML 1,000 ML IV PRN (09:58)
[2021-02-28] MEDS ORDERED: fentaNYL 2MCG/ML ROPIVACAINE 1.25MG/ML 100 ML BAG EPI PRN (09:58)
[2021-02-28] MEDS ORDERED: ONDANSETRON INJ 2 MG/ML 2 ML VIAL IV PRN (09:58)
[2021-02-28] MEDS ORDERED: diphenhydrAMINE 50 MG/ML VIAL IV PRN (09:58)
[2021-02-28] MEDS ORDERED: NALOXONE HCL 0.4 MG/1 ML VIAL/CARP IV PRN (09:58)
[2021-02-28] MEDS ORDERED: ePHEDrine sulfate 50 MG/ML AMP IV PRN (09:58)
--- NOTE | 2021-02-28 12:16 | Labor Progress Brief Note ---
Date of Service February 28, 2021 Subjective Reason For Note: Routine Evaluation pt still comfortable with epidural Assessment & Plan (1) Active labor at term: begin 2nd stage soon. fhts categ 1. Admission and Anticipated Discharge Date Admission Date: February 28, 2021 Physical Exam Constitutional: WD/WN, vitals as above Genitourinary: Manual OB Exam: + cervical dilation 10 cm, + cervical effacement 100% and + station + 3 OB Exam Monitor Tracing: + external FHT monitor used (125 mod variability), + external uterine monitor used (q2), + category I and + normal FHT variability Results & Data ([facility]) Vital Signs (Past 12 Hours) Vital Signs Temp Pulse Resp BP Pulse Ox 02/28/21 12:13 98 H 99 02/28/21 12:08 70 97 02/28/21 12:07 72 115/63 02/28/21 12:03 79 98 02/28/21 11:58 79 97 02/28/21 11:53 74 97 02/28/21 11:48 74 97 02/28/21 11:43 76 97 02/28/21 11:38 89 97 02/28/21 11:36 82 121/66 02/28/21 11:33 80 97 02/28/21 11:28 81 96 02/28/21 11:23 78 97 02/28/21 11:21 79 121/66 02/28/21 11:18 81 95 02/28/21 11:13 78 98 02/28/21 11:08 82 96 02/28/21 11:05 85 115/60 02/28/21 11:03 78 96 02/28/21 10:58 81 97 02/28/21 10:53 84 96 02/28/21 10:51 76 109/60 02/28/21 10:48 76 95 02/28/21 10:43 72 95 02/28/21 10:38 92 H 96 02/28/21 10:36 75 118/71 02/28/21 10:33 89 95 02/28/21 10:28 76 96 02/28/21 10:24 109 H 94 02/28/21 10:23 83 95 02/28/21 10:20 81 111/57 L 02/28/21 10:19 87 94 02/28/21 10:18 83 95 02/28/21 10:13 79 94 02/28/21 10:08 90 95 02/28/21 10:06 81 113/60 02/28/21 10:05 83 94 02/28/21 10:03 83 95 02/28/21 09:59 84 94 02/28/21 09:58 86 95 02/28/21 09:53 90 94 02/28/21 09:52 88 109/58 L 02/28/21 09:48 83 94 02/28/21 09:43 77 95 02/28/21 09:38 92 H 97 02/28/21 09:37 102 H 94 02/28/21 09:36 78 104/59 L 02/28/21 09:33 92 H 96 02/28/21 09:31 82 94 02/28/21 09:28 77 96 02/28/21 09:23 76 97 02/28/21 09:20 75 113/62 02/28/21 09:18 77 96 02/28/21 09:13 78 108/57 L 96 02/28/21 09:11 82 108/55 L 02/28/21 09:09 83 113/59 L 02/28/21 09:08 83 97 02/28/21 09:07 76 119/59 L 02/28/21 09:05 75 128/57 L 02/28/21 09:03 75 97 02/28/21 08:58 72 98 02/28/21 08:53 82 99 02/28/21 08:48 75 98 02/28/21 08:43 74 97 02/28/21 07:38 98.6 F 20 02/28/21 07:05 77 130/81 Coding Level of Care Code None Diagnoses Active labor at term
--- NOTE | 2021-02-28 12:35 | Delivery Summary ---
Vaginal Delivery Summary Date of Service February 28, 2021 Vaginal Delivery Summary and 2nd Degree LAC The patient dilated to complete and pushed to deliver a viable female infant Apgars 8 and 9 via over 2nd degree perineal laceration. Mouth and nose bulb suctioned at perineum. Shoulders and body delivered with ease. Infant was vigorous and crying at . Cord clamped and infant to maternal abdomen where the cord was then doubly clamped and cut. Placenta delivered spontaneously and intact, three-vessel cord. Hemostasis achieved with dilute pitocin and uterine massage. Cervix and sulci intact. Laceration repaired in usual fashion with 3- 0 vicryl. EBL 300 cc. Mother and baby stable recovery. [facility] Vaginal Delivery Charge Delivery Type Details: and 2nd Degree LAC
[2021-02-28] MEDS ORDERED: OXYTOCIN 20 UNITS in LACTATED RINGER'S 1,000 ML IV SCH (12:45)
[2021-02-28] MEDS ORDERED: DIPHTHERIA/TETANUS/PERTUSSIS 0.5 ML SYR/VIAL IM ONE (12:48)
[2021-02-28] MEDS ORDERED: SUPERCREAM 0.870% 15 GM JAR EXT PRN (12:48)
[2021-02-28] MEDS ORDERED: BENZOCAINE 20% AER SPR 82.5 GM CAN EXT PRN (12:48)
[2021-02-28] MEDS ORDERED: HYDROCORTISONE ACETATE 25 MG SUPP PR PRN (12:48)
--- NOTE | 2021-02-28 14:16 | Anesthesia Procedure Note ---
Date of Service February 28, 2021 Anesthesia Post Epidural Note Vital Signs Vital Signs: Temp Pulse Resp BP Pulse Ox 37.0 C 73 18 122/69 100 02/28/21 07:38 02/28/21 14:03 02/28/21 14:00 02/28/21 14:03 02/28/21 12:18 Notes Mental Status: alert / awake / arousable and participated in evaluation Patient Amnestic to Procedure: Yes Nausea / Vomiting: adequately controlled Pain: adequately controlled Airway Patency, RR, SpO2: stable & adequate BP & HR: stable & adequate Hydration State: stable & adequate Neuraxial Anesthesia: was administered and sensory block is resolving Anesthetic Complications: no major complications apparent and Pt Satisfied with anesthetic care Epidural: Removed without complications and With tip intact
[2021-02-28] MEDS: IBUPROFEN 600 MG TAB PO PRN ×3 (16:17→23:36)
[2021-02-28] MEDS: DOCUSATE SODIUM 100 MG CAP PO SCH (20:56)
[2021-03-01] MEDS: IBUPROFEN 600 MG TAB PO PRN ×3 (04:00→13:45)
[2021-03-01] MEDS ORDERED: PRENATAL VITAMIN 1 TAB PO SCH (08:00)
[2021-03-01] MEDS: DOCUSATE SODIUM 100 MG CAP PO SCH (08:15)
--- NOTE | 2021-03-01 11:08 | Obstetrical Progress Note ---
Date of Service March 01, 2021 Assessment & Plan (1) care following vaginal delivery: stable, doing well. wants to go home later today. instructions reviewed. f/u 6 wk pp check. breast, rh pos, ri. Day #:: 1 Subjective Ambulation: ambulating normally Voiding: no voiding problems Diet Tolerance:: regular diet Lochia:: Small Feeding Type:: breast feeding no pp concerns. breast feeding going well. eating, voiding, no excess bleeding. wants to go home later today. Physical Exam Constitutional WD/WN, vitals as above Respiratory normal respiratory effort, lungs clear to auscultation Cardiovascular Rate/Rhythm: regular rate and regular rhythm Gastrointestinal (Abdomen) Inspection/Auscultation: abdomen normal to inspection Percussion/Palpation: abdomen soft; abdomen nontender Fundus firm 2cm down Musculoskeletal nt calves no edema Neurologic grossly normal Psychiatric A+Ox3, euthymic affect Results & Data ([facility]) Vital Signs (Past 12 Hours) Vital Signs Temp Pulse Pulse Resp BP BP Pulse Ox 03/01/21 07:14 98.4 F 69 18 114/77 99 03/01/21 04:00 98.1 F 70 18 140/70 03/01/21 00:00 98.1 F 76 76 18 134/73 134/73
== END 2021-03-01 14:05 | disposition home or self-care (01) | DRG 807 ==
LOC: OPB 06:51 → 4S1 06:54 → 4S2 16:48